=== PATIENT | female | born 1960 | race Caucasian/White ===

== ENCOUNTER 2019-10-28 06:00 | Outpatient (RCR) | payer MEDICARE, MEDICAID, SELFPAY | END 2019-11-13 23:59 | disposition home or self-care (01) | LOC: GPT 06:00 | PROVIDERS: Family Provider Family Medicine; Referring Provider Neurological Surgery; Visit Provider Neurological Surgery | DX: M25.9 Joint disorder, unspecified (principal); M47.812 Spondylosis without myelopathy or radiculopathy, cervical region; M54.12 Radiculopathy, cervical region | CPT/HCPCS: 97032; 97110; 97140; 97162; 97530; G0283 ==

== ENCOUNTER 2019-11-14 06:00 | Outpatient (RCR) | payer MEDICARE, MEDICAID, SELFPAY | END 2019-12-14 23:59 | disposition home or self-care (01) | LOC: GPT 06:00 | PROVIDERS: Family Provider Family Medicine; Referring Provider Neurological Surgery; Visit Provider Neurological Surgery | DX: M54.2 Cervicalgia (principal); M79.601 Pain in right arm; M50.20 Other cervical disc displacement, unspecified cervical region | CPT/HCPCS: 97032; 97110; 97140; 97530; G0283 ==

== ENCOUNTER 2019-12-15 06:00 | Outpatient (RCR) | payer MEDICARE, MEDICAID, SELFPAY | END 2020-01-13 23:59 | disposition home or self-care (01) | LOC: GPT 06:00 | PROVIDERS: Family Provider Family Medicine; Referring Provider Neurological Surgery; Visit Provider Neurological Surgery | DX: M54.2 Cervicalgia (principal); M79.601 Pain in right arm; M50.20 Other cervical disc displacement, unspecified cervical region | CPT/HCPCS: 97032; 97110; 97112; 97140; 97164; 97530; G0283 ==

== ENCOUNTER 2020-01-14 06:00 | Outpatient (RCR) | payer MEDICARE, MEDICAID, SELFPAY | END 2020-02-13 23:59 | disposition home or self-care (01) | LOC: GPT 06:00 | PROVIDERS: Family Provider Family Medicine; Referring Provider Neurological Surgery; Visit Provider Neurological Surgery | DX: M25.9 Joint disorder, unspecified (principal); M47.812 Spondylosis without myelopathy or radiculopathy, cervical region; M54.12 Radiculopathy, cervical region | CPT/HCPCS: 97110; 97530; G0283 ==

== ENCOUNTER → 2021-08-28 09:38 | Outpatient (BNVA) | payer MEDICARE, MEDICAID, SELFPAY | PROVIDERS: Family Provider Family Medicine; PCP Family Medicine; Referring Provider Neurological Surgery; Visit Provider Anesthesiology Pain Medicine | DX: G89.29 Other chronic pain (principal); M54.2 Cervicalgia; M79.601 Pain in right arm | CPT/HCPCS: 99204 ==

== ENCOUNTER 2021-12-10 07:08 | Outpatient (CLI) | payer MEDICARE, MEDICAID, SELFPAY ==
--- NOTE | 2021-12-10 07:20 | US_ITS ---
WS: [id number] Complete ABDOMINAL ULTRASOUND HISTORY: NAUSEA/VOMITING/ABD PAIN COMPARISON: 01/02/2015 renal ultrasound. Liver: 15.4 cm in length. Liver is normal size and echogenicity with no mass or intrahepatic dilatati on. Portal Vein: Normal hepatopetal flow with monophasic waveform. Gallbladder: Prior cholecystectomy. Pancreas: Normal size and echogenicity. CBD: 0.2 cm. Right kidney: 11.3 cm x 5.0 cm x 4.8 cm. No mass, cortical thickening or hydronephrosis. Left kidney: 11.8 cm x 4.4 cm x 7.7 cm. No mass, cortical thickening or hydronephrosis. Spleen: Normal size and echogenicity. Abdominal aorta and IVC are within normal limits. No ascites. US/US abdomen complete* [id number] IMPRESSION: 1. Prior cholecystectomy. 2. Otherwise normal abdominal ultrasound.
== END 2021-12-10 07:09 | disposition home or self-care (01) ==
LOC: RAD 07:09
PROVIDERS: Family Provider Family Medicine; PCP Family Medicine; Visit Provider Family Medicine
DX: R11.2 Nausea with vomiting, unspecified (principal); R10.9 Unspecified abdominal pain; Z90.49 Acquired absence of other specified parts of digestive tract
CPT/HCPCS: 76700

== ENCOUNTER → 2022-01-16 12:44 | Outpatient (BNVA) | payer MEDICARE, MEDICAID, SELFPAY | PROVIDERS: Family Provider Family Medicine; PCP Family Medicine; Referring Provider Family Medicine; Visit Provider Internal Medicine | DX: E10.649 Type 1 diabetes mellitus with hypoglycemia without coma (principal); E10.40 Type 1 diabetes mellitus with diabetic neuropathy, unspecified; E16.0 Drug-induced hypoglycemia without coma; T38.3X5A Adverse effect of insulin and oral hypoglycemic [antidiabetic] drugs, initial encounter; E78.2 Mixed hyperlipidemia; K31.84 Gastroparesis; F17.200 Nicotine dependence, unspecified, uncomplicated; Z79.4 Long term (current) use of insulin; Z79.84 Long term (current) use of oral hypoglycemic drugs | CPT/HCPCS: 99204 ==

== ENCOUNTER → 2022-01-30 13:37 | Outpatient (BNVA) | payer MEDICARE, MEDICAID, SELFPAY | PROVIDERS: Family Provider Family Medicine; PCP Family Medicine; Visit Provider Internal Medicine | DX: E10.40 Type 1 diabetes mellitus with diabetic neuropathy, unspecified (principal); E10.649 Type 1 diabetes mellitus with hypoglycemia without coma; E16.0 Drug-induced hypoglycemia without coma; T38.3X5A Adverse effect of insulin and oral hypoglycemic [antidiabetic] drugs, initial encounter; E78.2 Mixed hyperlipidemia; K31.84 Gastroparesis; K59.00 Constipation, unspecified; F17.200 Nicotine dependence, unspecified, uncomplicated; Z79.4 Long term (current) use of insulin | CPT/HCPCS: 99215 ==

== ENCOUNTER 2022-02-26 10:39 | Outpatient (CLI) | payer MEDICARE, MEDICAID, SELFPAY ==
--- NOTE | 2022-02-26 10:50 | US_ITS ---
WS: [id number] TRANSABDOMINAL PELVIC AND TRANSVAGINAL PELVIC ULTRASOUND HISTORY: PELVIC PAIN/INGUINAL PAIN BILATERAL COMPARISON: None available. Patient is status post hysterectomy. No uterine or midline mass identified. Neither ovary is identifi ed. The urinary bladder is still noted on the post voiding transvaginal imaging due to overdistention . There is no free fluid. US/US pelvic with transvaginal IMPRESSION: 1. No pelvic masses are identified. Patient is status post complete hysterecto my. 2. No ascites.
== END 2022-02-26 10:40 | disposition home or self-care (01) ==
LOC: RAD 10:40
PROVIDERS: PCP Family Medicine; Visit Provider Family Medicine
DX: R10.2 Pelvic and perineal pain (principal)
CPT/HCPCS: 76830; 76856

== ENCOUNTER 2022-03-29 07:41 | Outpatient (CLI) | payer MEDICARE, MEDICAID, SELFPAY ==
--- NOTE | 2022-03-29 08:00 | NM_ITS ---
WS: [id number] NUCLEAR MEDICINE GASTRIC STUDY CLINICAL INFORMATION: nausea. vomiting. r/o gastroparesis TECHNIQUE: Following oral ingestion of cooked egg mixed with 1.02 mCi technetium 99m sulfur colloid, anterior images of the stomach were obtained over the course of 90 minutes. Activity curve was perfor med over the course of 90 minutes with linear regression analysis. COMPARISON: None. FINDINGS: Imaging obtained after oral ingestion of cooked egg mixed with 1.02 mCi technetium 99m sulf ur colloid. 16% emptying at 1 hour. 46% emptying at 2 hours T1/2 gastric emptying 135 minutes LA/[place] [id number] IMPRESSION: Delayed gastric emptying with only 16% emptying at 1 hour. *Normal median T1 half 90 minutes for solid egg meal (45-110 minutes). Delayed gastric retention is defined as 90% retained at 1 hour, 60% at 2 hour s, 30% at 3 hours, and 10% at 4 hours (normal percent gastric retention is 37-9 0% at 1 hour, 30-60% at 2 hours, and 0-10% at 4 hours).
== END 2022-03-29 07:42 | disposition home or self-care (01) ==
LOC: RAD 07:45
PROVIDERS: PCP Family Medicine; Visit Provider Internal Medicine
DX: K31.84 Gastroparesis (principal)
CPT/HCPCS: 78264; A9541

== ENCOUNTER → 2024-10-28 13:39 | Outpatient (BNVA) | payer MEDICARE, MEDICAID, SELFPAY | PROVIDERS: PCP Family Medicine; Visit Provider Family Medicine | DX: R05.9 Cough, unspecified (principal) | CPT/HCPCS: 87400; 87420; 87426 ==

== ENCOUNTER → 2024-12-14 08:58 | Outpatient (BNVA) | payer MEDICARE, MEDICAID, SELFPAY | PROVIDERS: PCP Family Medicine; Visit Provider Family Medicine | DX: E11.9 Type 2 diabetes mellitus without complications (principal); R30.0 Dysuria; E10.649 Type 1 diabetes mellitus with hypoglycemia without coma; E55.9 Vitamin D deficiency, unspecified | CPT/HCPCS: 80053; 80061; 81000; 82043; 82306; 82607; 83036; 84443; 85025 ==

== ENCOUNTER → 2024-12-23 11:46 | Outpatient (BNVA) | payer MEDICARE, MEDICAID, SELFPAY | PROVIDERS: PCP Family Medicine; Visit Provider Family Medicine | DX: R06.02 Shortness of breath (principal); R91.8 Other nonspecific abnormal finding of lung field | CPT/HCPCS: 71046 ==

== ENCOUNTER → 2025-02-21 14:45 | Outpatient (BNVA) | payer MEDICARE, MEDICAID, SELFPAY | PROVIDERS: PCP Family Medicine; Visit Provider Family Medicine | DX: E10.649 Type 1 diabetes mellitus with hypoglycemia without coma (principal) | CPT/HCPCS: 80053; 83036; 85025 ==